=== PATIENT | female | born 1995 | race Caucasian/White ===

== ENCOUNTER 2020-11-05 18:59 | Emergency (ER) | payer BC ==
[~2020-11-05] VITALS: Ht 170.2 cm; Wt 59.0 kg
--- NOTE | 2020-11-05 19:23 | NUR ---
PATIENT ARRIVE AT THE ER WITH C/O RIGHT LOWER QUADRANT PAIN X2 DAYS, RADIATING TO BACK WORSE AT NIGHT. PATIENT [id number].
--- NOTE | 2020-11-05 19:31 | NUR ---
Dr. Wong at bedside for MSE.
[2020-11-05 19:49] LABS: *URINE HCG, QUAL NEGATIVE (NEGATIVE)
[2020-11-05 19:53] LABS: *BILIRUBIN,URIN NEGATIVE (NEGATIVE); *COLOR,URINE YELLOW (YELLOW); *KETONES,URINE 1+ (NEGATIVE); *UROBILINOGEN,URINE 0.2 E.U./dl (NORMAL); LEUKOCYTE ESTERASE ,URINE 2+ (NEGATIVE); NITRITE, URINE POSITIVE (NEGATIVE); UGLUCOSE NEGATIVE (NEGATIVE)
[2020-11-05 19:55] LABS: *CLARITY,URINE SLIGHTLY CLOUDY (CLEAR); BACTERIA,URINE MODERATE /HPF (NONE SEEN); SQUAMOUS EPITHELIAL CELL,UR MANY /HPF (NONE SEEN)
[2020-11-05 19:56] LABS: *BLOOD, URINE 1+ (NEGATIVE)
[2020-11-05 20:02] LABS: HEMATOCRIT 43.1 % (31.2-41.9)
[2020-11-05 20:03] LABS: MEAN CORPUSCULAR HEMOGLOBIN 30.6 uug (24.7-32.8); PLATELET COUNT (AUTO) 245 K/uL (179-408)
[2020-11-05 20:13] LABS: CREATININE 0.7 mg/dL (0.6-1.3); POTASSIUM 3.6 mmol/L (3.5-5.1)
[2020-11-05 20:25] LABS: BILIRUBIN,DIRECT 0.1 mg/dL (0.0-0.2); BILIRUBIN,TOTAL 0.5 mg/dL (0.2-1.0); TOTAL PROTEIN, SERUM 8.2 g/dL (6.4-8.2)
[2020-11-05] MEDS ORDERED: CEPH250C PO (21:02)
--- NOTE | 2020-11-05 21:08 | NUR ---
Patient discharged to home in stable condition. Written and verbal after care instructions given. Patient verbalizes understanding of instructions. Stressed follow up or return to ER for worsening s/s. All belongings with patient.
[2020-11-05 21:11] VITALS: BP 120/80
== END 2020-11-05 21:08 | disposition home or self-care (01) ==
LOC: ER 19:03
DX: R10.31 Right lower quadrant pain (principal); Z97.5 Presence of (intrauterine) contraceptive device; N83.299 Other ovarian cyst, unspecified side
CPT/HCPCS: 36415; 76856; 84703; 85025; 87077; 87086; A4663